=== PATIENT | male | born 1980 | race Caucasian/White ===

== ENCOUNTER 2020-05-13 20:21 | Emergency (ER) | payer OTHER ==
--- NOTE | 2020-05-13 21:25 | ER Document Report ---
ED GI/ - General Chief Complaint: Bloody Stools Stated Complaint: NAUSEA,DIARRHEA Time Seen by Provider: 05/13/20 20:37 Mode of Arrival: Ambulatory Information source: Patient Notes: Patient is a 40-year-old male presents emergency department chief complaint of nausea and diarrhea. Patient reports he started a new medication 7 days ago which is Prozac. He states that the medication has been helping him significantly however he believes it is causing the symptoms. He states that he called his doctor and they told him to alternate taking it every other day. He states when he takes it it causes nausea and diarrhea within 8 hours of taking it. He states the diarrhea has gotten so bad that he had bright red blood in his stool tonight. He states a few days ago he noted that he had dark stool. He does have a history of GI bleeding in the past, he had a colonoscopy in 2012 because of it which he reports was normal. There is a history of colon cancer in a grandparent. He has no abdominal pain, denies fever, denies any vomiting. He states the CT for his primary care. - Related Data Home Medications: prozac Past Medical History - General Information source: Patient - Social History Smoking Status: Current Every Day Smoker Chew tobacco use (# tins/day): No Frequency of alcohol use: Occasional Drug Abuse: None Family History: Reviewed & Not Pertinent Patient has homicidal ideation: No Psychiatric Medical History: Reports: Hx Post Traumatic Stress Disorder Past Surgical History: Reports: Hx Cholecystectomy - Immunizations Immunizations up to date: Yes Review of Systems - Review of Systems Constitutional: No symptoms reported EENT: No symptoms reported Cardiovascular: No symptoms reported Respiratory: No symptoms reported Gastrointestinal: Diarrhea, Nausea, Blood streaked bowels Genitourinary: No symptoms reported Male Genitourinary: No symptoms reported Musculoskeletal: No symptoms reported Skin: No symptoms reported Hematologic/Lymphatic: No symptoms reported Neurological/Psychological: No symptoms reported Physical Exam - Vital signs Vitals: Temp 98.7 F 05/13/20 20:55 - Notes Notes: PHYSICAL EXAMINATION: GENERAL: Well-appearing, well-nourished and in no acute distress. HEAD: Atraumatic, normocephalic. EYES: Pupils equal round and reactive to light, extraocular movements intact, sclera anicteric, conjunctiva are normal. ENT: Nares patent, oropharynx clear without exudates. Moist mucous membranes. NECK: Normal range of motion, supple without lymphadenopathy LUNGS: Breath sounds clear to auscultation bilaterally and equal. No wheezes rales or rhonchi. HEART: Regular rate and rhythm without murmurs ABDOMEN: Soft, nontender, nondistended abdomen. No guarding, no rebound. No masses appreciated. Musculoskeletal: Normal range of motion, no pitting or edema. No cyanosis. NEUROLOGICAL: Cranial nerves grossly intact. Normal speech, normal gait. Normal sensory, motor exams PSYCH: Normal mood, normal affect. SKIN: Warm, Dry, normal turgor, no rashes or lesions noted. Course - Vital Signs Vital signs: Temp Pulse Resp BP Pulse Ox 98.7 F 80 16 134/82 H 100 05/13/20 20:59 05/13/20 20:59 05/13/20 20:59 05/13/20 20:59 05/13/20 20:59 - Laboratory Result Diagrams: 05/13/20 21:48 05/13/20 21:48 Laboratory results interpreted by me: 05/13/20 21:48 Chloride 108 H Glucose 150 H Discharge - Discharge Clinical Impression: Nausea, Acute diarrhea, Bloody stools Condition: Stable Disposition: HOME, SELF-CARE Additional Instructions: Your lab work today was reassuring. I have enclosed a copy of it for your doctor's review tomorrow. And diarrhea and nausea are common reactions with Prozac. 1 of the serious reactions that can happen with Prozac is bleeding. I do want you to discuss this with them tomorrow as they may want to consider changing you to a different medication. I also think you may want to consider having a repeat colonoscopy. I have enclosed the phone number below for a gastroenterology doctor here in [place] who should be able to take care of you for this. Please return to the emergency department for any new or worsening symptoms. Referrals: DEISI BLAIR MD [ACTIVE STAFF] - Follow up as needed
[2020-05-13 21:58] LABS: ABSOLUTE EOSINOPHILS # (AUTO) 0.2 10^3/uL (0.0-0.6); ABSOLUTE LYMPHOCYTES (AUTO) 2.4 10^3/uL (0.5-4.7); ABSOLUTE MONOCYTES (AUTO) 0.7 10^3/uL (0.1-1.4); ABSOLUTE NEUT (AUTO) 6.4 10^3/uL (1.7-8.2); BASOPHILS % (AUTO) 0.4 % (0-2); EOSINOPHILS % (AUTO) 2.1 % (0-6); HEMATOCRIT 41.6 % (37.9-51.0); HEMOGLOBIN 14.3 g/dL (13.5-17.0); LYMPHOCYTES % (AUTO) 24.5 % (13-45); MEAN CORPUSCULAR HEMOGLOBIN 30.3 pg (27.0-33.4); MEAN CORPUSCULAR HGB CONC 34.4 g/dL (32.0-36.0); MEAN CORPUSCULAR VOLUME 88 fl (80-97); MONOCYTES % (AUTO) 7.3 % (3-13); PLATELET COUNT 249 10^3/uL (150-450); RED BLOOD COUNT 4.72 10^6/uL (4.35-5.55); RED CELL DISTRIBUTION WIDTH 13.3 % (11.5-14.0); SEGMENTED NEUTROPHILS % (AUTO) 65.7 % (42-78); TOTAL CELLS COUNTED % (AUTO) 100 %; WHITE BLOOD COUNT 9.8 10^3/uL (4.0-10.5)
[2020-05-13 22:22] LABS: ALBUMIN 4.1 g/dL (3.5-5.0); ALKALINE PHOSPHATASE 73 U/L (38-126); ANION GAP 8 (5-19); ASPARTATE AMINO TRANSFERASE 25 U/L (17-59); BILIRUBIN,DIRECT 0.4 mg/dL (0.0-0.4); BILIRUBIN,TOTAL 0.4 mg/dL (0.2-1.3); BLOOD UREA NITROGEN 16 mg/dL (7-20); CALCIUM 9.5 mg/dL (8.4-10.2); CARBON DIOXIDE 25 mmol/L (22-30); CHLORIDE 108 mmol/L (98-107); GLUCOSE 150 mg/dL (75-110); POTASSIUM 3.8 mmol/L (3.6-5.0); TOTAL PROTEIN 6.5 g/dL (6.3-8.2)
[2020-05-13 23:35] VITALS: BP 134/73
== END 2020-05-13 23:35 | disposition home or self-care (01) ==
LOC: ER 20:21
DX: K92.1 Melena (principal); R19.7 Diarrhea, unspecified; R11.0 Nausea; F17.200 Nicotine dependence, unspecified, uncomplicated; Z90.49 Acquired absence of other specified parts of digestive tract
CPT/HCPCS: 36415; 80053; 83690; 85025; 99283